=== PATIENT | female | born 1980 | race Caucasian/White ===

== ENCOUNTER 2019-09-01 17:42 | Emergency (ER) | payer OTHER ==
[~2019-09-01] VITALS: Ht 165.1 cm; Wt 83.9 kg
[~2019-09-01 17:42] MED LIST: ALBUTEROL INHAL17 GM INH; AMOXICILLIN500 M1 PO; ASPIR 8181 MG PO; BIRTH CONTROL; DEXAMETHASONE0.5 MG PO; ENOXAPARIN40 MG/0.1 SUBQ; MEDROXYPROGESTERONE IM; PHENERGAN 25 MG25 M1 PO; PROGESTERONE200 MG PO; TRAMADOL 50 MG50 MG PO; ZPAK PO; [UNRECOGNIZED DRUG - OTHER] PO
[2019-09-01] MEDS ORDERED: CLARITIN10 M3 PO (18:20)
[2019-09-01] MEDS ORDERED: ADVIL200 M3 PO (18:20)
[2019-09-01] MEDS ORDERED: ZANAFLEX4 MG PO (19:19)
[2019-09-01] MEDS ORDERED: IBUPROFEN 800800 M1 PO (19:19)
[2019-09-01 19:37] VITALS: BP 104/68
== END 2019-09-01 19:37 | disposition home or self-care (01) ==
LOC: M.ERS 17:42
DX: S29.012A Strain of muscle and tendon of back wall of thorax, initial encounter (principal); S16.1XXA Strain of muscle, fascia and tendon at neck level, initial encounter; S09.8XXA Other specified injuries of head, initial encounter; Z88.8 Allergy status to other drugs, medicaments and biological substances; Z91.018 Allergy to other foods; Z77.22 Contact with and (suspected) exposure to environmental tobacco smoke (acute) (chronic); V89.2XXA Person injured in unspecified motor-vehicle accident, traffic, initial encounter; Y93.89 Activity, other specified; Y92.89 Other specified places as the place of occurrence of the external cause; Y99.8 Other external cause status

== ENCOUNTER → 2021-10-18 | Outpatient (CLI) | payer OTHER ==
[~2021-10-18] MED LIST changes: +ADVIL200 M3 PO; +CLARITIN10 M3 PO; +IBUPROFEN 800800 M1 PO; +ZANAFLEX4 MG PO
--- NOTE | 2021-11-04 08:29 | PF ---
[place] [address] PULMONARY FUNCTION REPORT Name: MUSA SCOTT Rosie Room: [facility]#: [id number] Admission: 10/18/21 Attend Phys: Christiano Vega MD Discharge: Date of : 84 Report #: [id number] THIS REPORT FOR: cc: Christiano Vega MD, Meng MD Pervez,Alan ARAUJO ~ DATE OF VISIT: 10/18/2021 PULMONARY FUNCTION TEST The FEV1/FVC ratio is normal at 78% with an FVC normal at 97%. The FEV1 is normal at 93%. FEF 25-75 is also normal at 78%. After the administration of a bronchodilator, there is no significant increase in any of these values. The flow volume loop, however, is mildly concave upwards. Only a spirometry was performed. IMPRESSION: Normal spirometry. Mild upward concavity of the flow volume loop is noted. Therefore, the possibility of underlying mild obstructive lung disease is considered. However, there is no definite evidence of obstruction on spirometry. Clinical correlation is advised. <ELECTRONICALLY SIGNED> By: Alan Garcia MD 11/04/21 0829 [id number] Garcia MD /nt
== END ==
LOC: M.PUL 13:43
PROVIDERS: ATTEND Internal Medicine
DX: J45.991 Cough variant asthma (principal)